=== PATIENT | female | born 1980 | race Caucasian/White ===

== ENCOUNTER 2019-02-06 15:45 | Inpatient (IN) | payer BC ==
[2019-02-06] MEDS ORDERED: CLINDAMYCIN PHOSPHATE 600 MG/4 ML VIAL ONE (18:19)
[2019-02-06] MEDS ORDERED: CLINDAMYCIN PHOSPHATE 600 MG/4 ML VIAL IVPB ONE (18:30)
[2019-02-06 18:34] VITALS: BMI 31.7
[2019-02-06] MEDS ORDERED: DEXTROSE 5%-LACTATED RINGERS 1,000 ML IV SCH ×2 (18:45→19:00)
[2019-02-06] MEDS ORDERED: BETAMET ACET/BETAMET NA PH 30 MG/5 ML VIAL IM ONE (18:48)
--- NOTE | 2019-02-06 19:00 | HP ---
Past Medical History - Primary Care Physician PCP:: Panda Parham - Admission Chief Complaint: 36 weeks, prom, AMA History of Present Illness: 39 yo f edc 03/03/18 . 36 weeks c/o leakage of fluid since 2 pm today, clear fluid , no fever, no bleeding fhr cat 1, irregular contraction not felt by patient .cx 1 cm 70 vx -3 mr, fhr cat 1. History Source: Patient Limitations to Obtaining History: No Limitations - Past Medical History ...: 1 ...Para: 0 ...Term: 0 ...: 0 ...Spon : 0 ...Induced : 0 ...EDC by [facility]: 03/03/19 Heme/Onc: Yes: Anemia - Past Surgical History Hx Myomectomy: No Hx Transabdominal Cerclage: No - Smoking History Smoking history: Never smoked Have you smoked in the past 12 months: No Aproximately how many cigarettes per day: 0 - Alcohol/Substance Use Hx Alcohol Use: No - Social History History of Recent Travel: No Home Medications - Allergies Allergies/Adverse Reactions: Allergies Allergy/AdvReac Type Severity Reaction Status Date / Time Penicillins Allergy Severe Hives Verified 02/06/19 18:46 - Home Medications Home Medications: Ambulatory Orders [place]-3 Fatty Acids/Fish Oil [Fish Oil 1,000 mg Capsule] 1 tab PO DAILY Pnv No.95/Ferrous Fum/Folic AC [ Vitamin Tablet] 1 each PO DAILY Review of Systems - Review of Systems Constitutional: reports: No Symptoms Eyes: reports: No Symptoms HENT: reports: No Symptoms Neck: reports: No Symptoms Cardiovascular: reports: No Symptoms Respiratory: reports: No Symptoms Gastrointestinal: reports: No Symptoms Genitourinary: reports: No Symptoms Breasts: reports: No Symptoms Reported Musculoskeletal: reports: No Symptoms Integumentary: reports: No Symptoms Neurological: reports: No Symptoms Endocrine: reports: No Symptoms Hematology/Lymphatic: reports: No Symptoms Psychiatric: reports: No Symptoms Physical Exam - Maternity Vital Signs: Vital Signs Temperature 98.1 F 02/06/19 18:15 Pulse Rate 72 02/06/19 18:15 Respiratory Rate 20 02/06/19 18:15 Blood Pressure 126/88 02/06/19 18:15 O2 Sat by Pulse Oximetry (%) Constitutional: Yes: Well Nourished, No Distress, Calm Eyes: Yes: WNL, Conjunctiva Clear, EOM Intact HENT: Yes: WNL, Atraumatic, Normocephalic Neck: Yes: WNL, Supple, Trachea Midline Cardiovascular: Yes: WNL, Regular Rate and Rhythm Breast(s): Yes: WNL - Abdominal Exam/OB Fundal Height: 36 Number of Fetuses: Single Presentation: Vertex Contractions: Yes Regularity: Irregular Intensity: Unaware Monitor Mode: External Heart Rate Location: [facility] Category: I Accelerations: Non-Uniform Decelerations: None - Vaginal Exam/OB Vaginal Bleediing: No Speculum Exam: Yes Dilatation (cm): 1 Effacement (%): 70 Amniotic Membrane Status: Ruptured Nitrazine Test: Positive Amniotic Fluid: Yes: Clear Presentation: Vertex/Position Station: -3 - Physical Exam Musculoskeletal: Yes: WNL Extremities: Yes: WNL Edema: LLE: Trace, RLE: Trace Deep Tendon Reflex Grade: Normal +2 ...Motor Strength: WNL Psychiatric: Yes: WNL Hemorrhage Risk Assessment - Risk Factors Medium Risk Factors: Yes: None High Risk Factors: Yes: None Risk Score: 1 Risk Level: Medium Risk Problem List - Problems (1) with 36 completed weeks gestation Code(s): Z3A.36 - 36 WEEKS GESTATION OF (2) PROM (premature rupture of membranes) Code(s): O42.90 - NELY ROM, 7TH0 BETW RUPT & ONST LABR, UNSP WEEKS OF GEST Qualifiers: PROM onset of labor timing: onset of labor within 24 hours of rupture (3) AMA (advanced maternal age) multigravida 35+ Code(s): O09.529 - SUPERVISION OF ELDERLY MULTIGRAVIDA, UNSPECIFIED TRIMESTER Qualifiers: Trimester: third trimester Qualified Code(s): O09.523 - Supervision of elderly multigravida, third trimester Assessment/Plan admit [facility] one dose iv hydration IV antibiotics prophylaxes possible induction in 12 24 hr if not in labor
[2019-02-06] MEDS ORDERED: PROMETHAZINE HCL 25 MG/1 ML VIAL IVPUSH ONE (19:39)
[2019-02-06] MEDS ORDERED: BUTORPHANOL TARTRATE 1 MG/ML VIAL IVPUSH ONE (19:39)
[2019-02-06 19:59] LABS: BASO % 0.3 % (0-2.0); EOS % 0.6 % (0-4.5); HEMATOCRIT 43.2 % (32.4-45.2); HEMOGLOBIN 14.7 GM/dL (10.7-15.3); MCH 29.5 pg (25.7-33.7); MEAN CELL VOLUME 86.8 fl (80-96); MEAN PLT VOLUME 12.3 fl (7.5-11.1); MONO % 5.2 % (3.8-10.2); NEUT % 72.9 % (42.8-82.8); PLATELET COUNT 147 K/MM3 (134-434); RBC 4.98 M/mm3 (3.60-5.2); RDW 13.5 % (11.6-15.6); WHITE BLOOD COUNT 10.5 K/mm3 (4.0-10.0)
[2019-02-06 20:19] LABS: INR 0.85 (0.83-1.09)
[2019-02-06 20:22] LABS: ACTIVATED PTT 26.1 SECONDS (25.2-36.5)
[2019-02-06 20:24] LABS: BLOOD UREA NITROGEN 13.9 mg/dL (7-18); CALCIUM 9.3 mg/dL (8.5-10.1); CREATININE 0.7 mg/dL (0.55-1.3); POTASSIUM 3.7 mmol/L (3.5-5.1)
[2019-02-06] MEDS ORDERED: BETAMET ACET/BETAMET NA PH 30 MG/5 ML VIAL ONE (20:27)
[2019-02-06] MEDS ORDERED: PROMETHAZINE HCL 25 MG/1 ML VIAL ONE (21:48)
[2019-02-06] MEDS ORDERED: BUTORPHANOL TARTRATE 1 MG/ML VIAL ONE ×2 (21:48)
[2019-02-06 22:05] LABS: PLATELET ESTIMATE NORMAL
[2019-02-06] MEDS ORDERED: LIDO 2%/EPI 1:200000 PRESRVFRE (20 ML SDVIAL) ONE (22:22)
[2019-02-06] MEDS ORDERED: BUPIVACAINE HCL/PF 2.5 MG/ML - 30 ML VIAL IJ ONE (22:22)
[2019-02-06] MEDS ORDERED: FENTANYL/BUPIVACAINE/NS/PF - PCEA - 50 ML DISP.SYRIN EP ONE (22:28)
[2019-02-06] MEDS ORDERED: NALOXONE HCL 0.4 MG/ML VIAL IVPUSH PRN (22:43)
[2019-02-06] MEDS ORDERED: FENTANYL/BUPIVACAINE/NS/PF - PCEA - 50 ML DISP.SYRIN EP SCH (22:45)
[2019-02-07] MEDS ORDERED: CLINDAMYCIN PHOSPHATE 600 MG/4 ML VIAL ONE ×2 (00:18→05:43)
[2019-02-07] MEDS: CLINDAMYCIN PHOSPHATE 600 MG/4 ML VIAL IVPB SCH ×2 (00:30→05:45)
[2019-02-07] MEDS ORDERED: FENTANYL/BUPIVACAINE/NS/PF - PCEA - 50 ML DISP.SYRIN EP ONE (02:45)
[2019-02-07] MEDS ORDERED: OXYTOCIN 20 UNITS in 0.9% NS 20 UNIT/1,000 ML INFUS.BAG IV ONE (05:44)
[2019-02-07] MEDS ORDERED: LIDOCAINE HCL 1% PRESERVATIVE FREE - 30ML VIAL ONE (05:44)
[2019-02-07] MEDS ORDERED: METHYLERGONOVINE MALEATE 0.2 MG/1 ML AMP IM PRN (07:05)
[2019-02-07] MEDS ORDERED: BISACODYL 10 MG SUPP.RECT RC PRN (07:05)
[2019-02-07] MEDS ORDERED: BENZOCAINE 28 GM HEMORRHOIDAL OINTMENT TP PRN (07:05)
[2019-02-07] MEDS ORDERED: WITCH HAZEL 50% (TUCKS) 40 PAD/JAR PAD TP PRN (07:05)
--- NOTE | 2019-02-07 07:05 | PN ---
Progress Note (short form) - Note Progress Note: 6 am cx full 100 vx 2+ , mr, fhr cat 1, wants to push Problem List - Problems (1) with 36 completed weeks gestation Code(s): Z3A.36 - 36 WEEKS GESTATION OF (2) PROM (premature rupture of membranes) Code(s): O42.90 - NELY ROM, 7TH0 BETW RUPT & ONST LABR, UNSP WEEKS OF GEST Qualifiers: PROM onset of labor timing: onset of labor within 24 hours of rupture (3) AMA (advanced maternal age) multigravida 35+ Code(s): O09.529 - SUPERVISION OF ELDERLY MULTIGRAVIDA, UNSPECIFIED TRIMESTER Qualifiers: Trimester: third trimester Qualified Code(s): O09.523 - Supervision of elderly multigravida, third trimester
--- NOTE | 2019-02-07 07:10 | PN ---
Delivery - Delivery Vaginal Delivery: Spontaneous Type of Anesthesia: Local, Epidural Episiotomy/Laceration: Midline (cx full , head on perinum, 5cc lidocaine infiltrated , median episiotomy done, head delivered , nasopharynx suctioned , cord around neck once , ant anad post. shoulder with no difficulty, live baby boy 7/9, placeta complete , median episiotomy in 3 layers with 2 chromic , ebl 300 cc no comlication)
[2019-02-07] MEDS ORDERED: OXYTOCIN 20 UNITS in 0.9% NS 20 UNIT/1,000 ML INFUS.BAG IV SCH (07:15)
[2019-02-07] MEDS ORDERED: D5W-LR W/ 20 UNITS OXYTOCIN 1,000 ML IV SCH (07:15)
[2019-02-07] MEDS ORDERED: ELECTROLYTE-148 SOLN 1,000 ML IV SCH (07:45)
[2019-02-07 10:05] LABS: POC NITRAZINE POS
[2019-02-07] MEDS: FERROUS SO4 325 MG TABLET (FP) PO SCH ×2 (10:39→16:53)
[2019-02-07] MEDS: PRENATAL VITAMINS W/ FOLIC ACID TABLET (FP) PO SCH (10:39)
[2019-02-07] MEDS: ACETAMINOPHEN 325 MG TABLET (FP) PO PRN ×2 (16:54→23:06)
[2019-02-07] MEDS: IBUPROFEN 600 MG TABLET (FP) PO PRN ×2 (16:54→23:06)
[2019-02-07] MEDS: BENZOCAINE 20% 57 GM BOTTLE TP PRN (16:55)
[2019-02-08 07:40] LABS: BASO % 0.2 % (0-2.0); EOS % 0.2 % (0-4.5); HEMATOCRIT 37.2 % (32.4-45.2); HEMOGLOBIN 12.4 GM/dL (10.7-15.3); LYMPH % 12.8 % (8-40); MCH 29.4 pg (25.7-33.7); MCHC 33.4 g/dl (32.0-36.0); MEAN CELL VOLUME 88.2 fl (80-96); MEAN PLT VOLUME 11.4 fl (7.5-11.1); MONO % 5.4 % (3.8-10.2); NEUT % 81.4 % (42.8-82.8); PLATELET COUNT 116 K/MM3 (134-434); RBC 4.22 M/mm3 (3.60-5.2); WHITE BLOOD COUNT 15.9 K/mm3 (4.0-10.0)
--- NOTE | 2019-02-08 08:01 | PN ---
Progress Note (short form) - Note Progress Note: ppd1 s/p , doing well, no excess vaginal bleeding CBC, BMP 02/06/19 19:00 Last Vital Signs Temp Pulse Resp BP Pulse Ox 98.2 F 84 20 134/88 99 02/07/19 22:12 02/07/19 22:12 02/07/19 22:12 02/07/19 22:12 02/07/19 09:43 abdomen soft, no distension, no cva uterus non tender lochia mild no calf tenderness plan ambulate , cbc plan for d/c home in am Problem List - Problems (1) with 36 completed weeks gestation Code(s): Z3A.36 - 36 WEEKS GESTATION OF (2) PROM (premature rupture of membranes) Code(s): O42.90 - NELY ROM, 7TH0 BETW RUPT & ONST LABR, UNSP WEEKS OF GEST Qualifiers: PROM onset of labor timing: onset of labor within 24 hours of rupture (3) AMA (advanced maternal age) multigravida 35+ Code(s): O09.529 - SUPERVISION OF ELDERLY MULTIGRAVIDA, UNSPECIFIED TRIMESTER Qualifiers: Trimester: third trimester Qualified Code(s): O09.523 - Supervision of elderly multigravida, third trimester
[2019-02-08] MEDS: FERROUS SO4 325 MG TABLET (FP) PO SCH ×2 (09:01→18:12)
[2019-02-08] MEDS: PRENATAL VITAMINS W/ FOLIC ACID TABLET (FP) PO SCH (09:52)
[2019-02-08] MEDS: IBUPROFEN 600 MG TABLET (FP) PO PRN ×3 (09:52→21:20)
[2019-02-08] MEDS: ACETAMINOPHEN 325 MG TABLET (FP) PO PRN ×3 (09:53→21:21)
[2019-02-08] MEDS: BENZOCAINE 20% 57 GM BOTTLE TP PRN (15:35)
[2019-02-08] MEDS ORDERED: SENNOSIDES/DOCUSATE COMBO (SENNA PLUS) TABLET (UD) PO PRN (22:00)
[2019-02-09] MEDS: ACETAMINOPHEN 325 MG TABLET (FP) PO PRN (07:12)
[2019-02-09] MEDS: IBUPROFEN 600 MG TABLET (FP) PO PRN (07:14)
[2019-02-09] MEDS: FERROUS SO4 325 MG TABLET (FP) PO SCH ×2 (08:58→18:21)
[2019-02-09] MEDS: PRENATAL VITAMINS W/ FOLIC ACID TABLET (FP) PO SCH (10:37)
--- NOTE | 2019-02-09 10:52 | DS ---
Physical Exam-[employer] Vital Signs: Vital Signs Temperature 97.9 F 02/09/19 02:50 Pulse Rate 76 02/08/19 21:54 Respiratory Rate 20 02/08/19 21:54 Blood Pressure 140/91 02/08/19 21:54 O2 Sat by Pulse Oximetry (%) 99 02/07/19 09:43 Constitutional: Yes: Well Nourished, No Distress, Calm Eyes: Yes: WNL, Conjunctiva Clear, EOM Intact HENT: Yes: WNL, Atraumatic, Normocephalic Neck: Yes: WNL, Supple, Trachea Midline Cardiovascular: Yes: WNL, Regular Rate and Rhythm Respiratory: Yes: WNL, Regular, CTA Bilaterally Gastrointestinal: Yes: WNL ...Rectal Exam: Yes: WNL Renal/: Yes: WNL ....Post : Yes: Uterus firm, Uterus non-tender, Slight lochia rubra Breast(s): Yes: WNL Musculoskeletal: Yes: WNL Extremities: Yes: WNL Edema: No Integumentary: Yes: WNL Neurological: Yes: WNL, Alert, Oriented ...Motor Strength: WNL Psychiatric: Yes: WNL, Alert, Oriented Labs: CBC, BMP 02/08/19 07:05 02/06/19 19:00 Delivery - Delivery Vaginal Delivery: Spontaneous Type of Anesthesia: Local, Epidural Episiotomy/Laceration: Midline (cx full , head on perinum, 5cc lidocaine infiltrated , median episiotomy done, head delivered , nasopharynx suctioned , cord around neck once , ant anad post. 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: Yes Name: Corina Greene Infant Gender: Male Weight: 5 lb 3 oz Position: Left, OA Total Hours ROM (Hrs/Mins): 12H30M - 1 Minute Total Score: 7 5 Minutes Total Score: 9 - Post Feeding Plan Initial Plan: Exclusive throughout hospitalization Discharge Summary Problems reviewed: Yes Reason For Visit: 36 weeks, PROM Current Active Problems AMA (advanced maternal age) multigravida 35+ (Acute) AMA (advanced maternal age) primigravida 35+ (Acute) PROM (premature rupture of membranes) (Acute) with 36 completed weeks gestation (Acute) Procedures: Principal: Other Procedures: median episiotomy Hospital Course: no complication Health Concerns: obesity Plan of Treatment: wt loss, exercise, low carb diet Goals: normal BMI Condition: Good - Instructions Diet, Activity, Other Instructions: regular diet, no intercourse , follow up office 4 weeks, if fevr, pain, heavy vaginal bleeding call md Referrals: Panda Parham MD [Staff Physician] - Disposition: HOME - Home Medications Comprehensive Discharge Medication List: Ambulatory Orders [place]-3 Fatty Acids/Fish Oil [Fish Oil 1,000 mg Capsule] 1 tab PO DAILY Pnv No.95/Ferrous Fum/Folic AC [ Vitamin Tablet] 1 each PO DAILY Ibuprofen [Motrin -] 600 mg PO QID #28 tablet 02/08/19
[2019-02-09 16:11] VITALS: BP 128/76; PULSE 62; TEMP 98
== END 2019-02-09 17:45 | disposition home or self-care (01) | DRG 807 ==
LOC: JDEL 15:45 → JLDR 18:15 → J3W 02-07 09:51
PROVIDERS: ADMIT Obstetrics & Gynecology; ATTEND Obstetrics & Gynecology
PROC: 10E0XZZ Delivery of Products of Conception, External Approach (ICD-10-PCS; principal; 2019-02-07)
PROC: 0W8NXZZ Division of Female Perineum, External Approach (ICD-10-PCS; 2019-02-07)
DX: O42.913 Preterm premature rupture of membranes, unspecified as to length of time between rupture and onset of labor, third trimester (principal); Z37.0 Single live birth; O09.523 Supervision of elderly multigravida, third trimester; Z3A.36 36 weeks gestation of pregnancy
CPT/HCPCS: 36415; 36600; 59409; 76801-TC; 80048; 82803; 83986-QW; 85025; 85610; 85730; 86593; 86850; 86900; 86901; 96372

== ENCOUNTER 2022-08-07 14:46 | Emergency (ER) | payer OTHER, BC ==
[2022-08-07 14:53] VITALS: BP 138/90; PULSE 85; RESP 18; TEMP 98.5; BMI 28.3
[2022-08-07] MEDS ORDERED: IBUPROFEN 600 MG TABLET (FP) PO ONE ×2 (15:06→15:10)
== END 2022-08-07 15:15 | disposition home or self-care (01) ==
LOC: FER 14:46
DX: M54.6 Pain in thoracic spine (principal); M54.50 Low back pain, unspecified; M25.511 Pain in right shoulder; M25.512 Pain in left shoulder
CPT/HCPCS: 99283-25

== ENCOUNTER 2023-11-05 04:19 | Day surgery (SDC) | payer BC, OTHER ==
[2023-10-31 13:47] VITALS: BMI 24.5
[2023-11-05 11:25] VITALS: RESP 20
[2023-11-05] MEDS ORDERED: MIDAZOLAM HCL 2 MG/2 ML SINGLE DOSE VIAL ONE (14:41)
[2023-11-05] MEDS ORDERED: PROPOFOL 20 ML ONE ×2 (14:54→15:09)
[2023-11-05] MEDS ORDERED: LIDOCAINE 1%/EPI 1:100000 (20 ML MULTI DOSE VIAL) ONE (15:09)
[2023-11-05] MEDS ORDERED: DEXAMETHASONE SOD PHOSPHATE 4 MG/1 ML VIAL ONE (15:09)
[2023-11-05] MEDS ORDERED: ONDANSETRON 4 MG/2 ML VIAL ONE (15:09)
[2023-11-05] MEDS ORDERED: KETOROLAC TROMETHAMINE 30 MG/1 ML VIAL ONE (15:09)
[2023-11-05] MEDS: LIDOCAINE 1%/EPI 1:100000 (20 ML MULTI DOSE VIAL) IJ ONE (15:11)
[2023-11-05 15:41] VITALS: TEMP 97.7
[2023-11-05] MEDS ORDERED: ONDANSETRON 4 MG/2 ML VIAL IVPUSH PRN (17:46)
[2023-11-05 18:07] VITALS: BP 102/64; PULSE 82
== END 2023-11-05 18:20 | disposition home or self-care (01) ==
LOC: JASU-SURG 04:19
PROVIDERS: ATTEND Obstetrics & Gynecology
PROC: 0UBC7ZZ Excision of Cervix, Via Natural or Artificial Opening (ICD-10-PCS; principal; 2023-11-05 13:00)
DX: R87.613 High grade squamous intraepithelial lesion on cytologic smear of cervix (HGSIL) (principal)
CPT/HCPCS: 81025; 88305-TC; 88307-TC